=== PATIENT | female | born 1970 | race Caucasian/White ===

== ENCOUNTER → 2023-08-11 | Outpatient (CLI) | payer OTHER, SELFPAY ==
--- NOTE | 2023-08-10 12:30 | KNEE_PTH ---
PATIENT: MAVIS RUIZ LOC: [facility] U#:[id number] AGE/SX: 53/F ROOM: RE08/11/[address]: Dr. Prakash Jose MD : 1970 BED: DIS: 08/11/2023 SPEC #: [id number] RECD: 08/14/23 07:28 STATUS: MARKIE SASHA #: [id number] LAYA: 08/10/23 12:[address]: Prakash Jose DEPT: SURGICAL PATHOLOGY RECD BY: Alison Pleitez ENTERED: 08/14/23 07:29 SP TYPE: TOTAL KNEE OTHR DR: ENOC Tissues: Knee, NOS Procedures: Decalcification bone/plaque Surgery Specimen Level IV HEADER OPERATION: Right total knee arthroplasty PRE-OP DIAGNOSIS: Grade 4 primary osteoarthritis right knee TISSUE SUBMITTED: Right knee bone and soft tissue MICROSCOPIC DIAGNOSIS Bone and soft tissue, right knee, total knee replacement/resection: Pieces of bone with degenerative osteoarthritic changes. Fibroadipose tissue, fibroconnective tissue and reactive synovial tissue. FARHAN:gabrielle 08/17/2023 MICROSCOPIC DESCRIPTION Slides are reviewed. GROSS DESCRIPTION Received is one container designated bone and soft tissue right knee. The specimen consists of multiple fragments of savage-yellow bone measuring in aggregate 12.0 x 11.0 x 3.0 cm. Also in the specimen container are multiple fragments of yellow-white soft tissue measuring in aggregate 8.0 x 5.5 x 2.0 cm. A number of bony fragments contain articular surfaces consistent with tibial plateau and femoral condyle and displaying prominent osteophyte formation, eburnation and bone erosion. Metalsmith sections are submitted in two cassettes as follows: 1 - soft tissue, 2 - bone after decalcification. / FARHAN:gabrielle 08/14/2023 TC:5 [facility] [place]: [id number], [id number]
== END | disposition home or self-care (01) ==
LOC: LABSPEC 15:25
PROVIDERS: Referring Provider Orthopaedic Surgery; Visit Provider Orthopaedic Surgery
DX: M17.11 Unilateral primary osteoarthritis, right knee (principal)
CPT/HCPCS: 88305; 88311